=== PATIENT | female | born 1950 | race Caucasian/White ===

== ENCOUNTER 2025-08-27 20:11 | Outpatient (CLI) | payer MEDICARE, BC, SELFPAY | END 2025-08-27 20:12 | disposition home or self-care (01) | LOC: SLEEP 20:12 | PROVIDERS: PCP Internal Medicine; Visit Provider Orthopaedic Surgery | DX: G47.33 Obstructive sleep apnea (adult) (pediatric) (principal) | CPT/HCPCS: 95810 ==